=== PATIENT | male | born 1975 | race Caucasian/White ===

== ENCOUNTER → 2020-02-22 | Outpatient (CLI) | payer OTHER ==
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
== END ==
LOC: RAD 10:37
PROVIDERS: ATTEND Family Medicine
DX: R91.1 Solitary pulmonary nodule (principal)
CPT/HCPCS: 71046

== ENCOUNTER → 2020-04-15 | Outpatient (CLI) | payer OTHER ==
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
== END ==
LOC: CT 11:25
PROVIDERS: ATTEND Physician Assistant Medical
DX: R91.1 Solitary pulmonary nodule (principal); S22.39XA Fracture of one rib, unspecified side, initial encounter for closed fracture; X58.XXXA Exposure to other specified factors, initial encounter; Y93.89 Activity, other specified; Y92.89 Other specified places as the place of occurrence of the external cause; Y99.8 Other external cause status
CPT/HCPCS: 71250